=== PATIENT | male | born 1960 | race Caucasian/White ===

== ENCOUNTER 2019-11-24 01:20 | Emergency (ER) | payer MEDICARE, MEDICAID ==
[~2019-11-24] VITALS: Ht 182.9 cm; Wt 79.9 kg
[~2019-11-24 01:20] MED LIST: BENZ2AMP4; DIVA500T2
[2019-11-24 01:25] VITALS: BP 126/72
== END 2019-11-24 02:22 | disposition home or self-care (01) ==
LOC: ED 01:43
DX: B07.0 Plantar wart (principal); Z87.891 Personal history of nicotine dependence
CPT/HCPCS: 99281